=== PATIENT | male | born 1935 | race Caucasian/White ===

== ENCOUNTER 2017-01-06 17:24 | Emergency (ER) | payer OTHER, BC ==
[2017-01-06 17:38] VITALS: BP 113/60; PULSE 99; TEMP 98.3; BMI 29.6
[2017-01-06 21:20] LABS: EOSINOPHIL 3.2 % (0-4.5); MCH 31.2 pg (25.7-33.7); MCHC 33.8 g/dl (32.0-35.9); MEAN CELL VOLUME 92.4 fl (80-96); MEAN PLT VOLUME 7.5 fl (7.5-11.1); PLATELET COUNT 286 K/MM3 (134-434); RDW 14.3 % (11.9-15.9); WHITE BLOOD COUNT 13.9 K/mm3 (4.0-10.0)
[2017-01-06 21:47] LABS: ALBUMIN 3.6 g/dl (3.4-5.0); ANION GAP 8 (8-16); CALCIUM 8.8 mg/dL (8.5-10.1); CO2 27 mmol/L (21-32); CREATININE 1.2 mg/dL (0.7-1.3); GLUCOSE,RANDOM 100 mg/dL (74-106); SGOT/AST 11 U/L (15-37); SGPT/ALT 19 U/L (12-78); TOT PROT 7.3 g/dl (6.4-8.2)
[2017-01-06 21:56] LABS: ALK PHOS 99 U/L (45-117); THYROID STIMULATING HORMONE 1.48 uIU/ml (0.358-3.74); TROPONIN I < 0.02 ng/ml (0.00-0.05)
--- NOTE | 2017-01-06 22:36 | PDOC ---
History of Present Illness - General Chief Complaint: Respiratory Stated Complaint: COUGH Time Seen by Provider: 01/06/17 20:28 History Source: Patient, Family Exam Limitations: No Limitations - History of Present Illness Initial Comments: 01/06/17 22:36 81yo Male patient w/ PmHx: HTN, DVT, HLD, CHF, presents to ED c/o cough x 4 weeks. Patient states he has been given Levaquin and prednisone 3 weeks ago from his PCP, Dr. Marx, upon completion patient states symptoms did not resolve. He was then prescribed Zithromax without relief. Patient c/o dyspnea, and persist cough. He denies n/v/d, CP, Abd pain, Back pain, diff breathing, dizziness, weakness, or any other complaints at this time. PCP Dr. Marx Timing/Duration: reports: constant Severity: reports: moderate Episode Description: See HPI Possible Cause: Yes: no prior episodes Modifying Factors: improves with: antibiotics. worse with: activity, albuterol inhaler, albuterol nebulizer, coughing, lying down, oxygen, rest, other Associated Symptoms: reports: cough. denies: denies symptoms, chest pain/ soreness, dizziness, earache, facial pain, fever/chills, headache, lightheadedness, muscle aches, nasal congestion, nasal drainage, shortness of breath, sinus infection, sore throat, wheezing, other Aspirin Received prior to arrival: No: no aspirin today, unknown, 81 mg x 1, 81 mg x 2, 81 mg x 3, 81 mg x 4, 325 mg x 1, provided at home, provided by EMS, provided by ED ASA Contraindications(Core Measure): No: Allergy, Other, Active Blding w/i 24 hrs., Plavix, Receiving Warfarin Past History - Travel Traveled outside of the country in the last 30 days: No Close contact w/someone who was outside of country & ill: No - Past Medical History Allergies/Adverse Reactions: Allergies Allergy/AdvReac Type Severity Reaction Status Date / Time No Known Drug Allergies Allergy Verified 01/06/17 17:30 Home Medications: Ambulatory Orders Aspirin Coated [Ecotrin -] 81 mg PO DAILY 11/21/13 Cholecalciferol (Vitamin D3) [Vitamin D] 2,000 unit PO DAILY 11/21/13 Losartan Potassium 100 mg PO DAILY 11/21/13 Anemia: No Asthma: No Cancer: No Cardiac Disorders: No CVA: No COPD: No CHF: No Dementia: No Diabetes: No GI Disorders: No Disorders: No HTN: Yes Hypercholesterolemia: No Liver Disease: No Seizures: No Thyroid Disease: No - Surgical History Neurologic Surgery: Yes (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) - Psycho/Social/Smoking Cessation Hx Anxiety: No Suicidal Ideation: No Smoking History: Never smoked Have you smoked in the past 12 months: No Hx Alcohol Use: No Drug/Substance Use Hx: No Substance Use Type: None Hx Substance Use Treatment: No Respiratory Specific PMHX - Complaint Specific PMHX Angina: No Bronchitis: No Pneumonia: No Pulmonary Embolus: No TB (Tuberculosis): No Review of Systems - Review of Systems Able to Perform ROS?: Yes Is the patient limited Japanese proficient: No Constitutional: No: Chills, Fever, Night Sweats Respiratory: Yes: Cough, Shortness of Breath, SOB with Exertion. No: SOB at Rest, Stridor, Wheezing, Productive cough Cardiac (ROS): No: Chest Pain, Lightheadedness, Palpitations, Syncope, Chest Tightness ABD/GI: No: Constipated, Diarrhea, Nausea, Poor Appetite, Poor Fluid Intake, Vomiting, Abdominal cramping : No: Burning, Dysuria, Hematuria Musculoskeletal: No: Back Pain Integumentary: No: Bruising, Dryness, Erythema, Sweating Neurological: No: Headache All Other Systems: Reviewed and Negative *Physical Exam - Vital Signs Last Vital Signs Temp Pulse Resp BP Pulse Ox 98.3 F 99 H 20 113/60 96 01/06/17 17:26 01/06/17 17:26 01/06/17 17:26 01/06/17 17:26 01/06/17 17:26 - Physical Exam General Appearance: Yes: Nourished, Appropriately Dressed. No: Apparent Distress, Mild Distress, Moderate Distress, Severe Distress Neck: positive: Trachea midline, Supple. negative: Rigid, Decreased range of motion, Stridor, Lymphadenopathy (R), Lymphadenopathy (L), Tender lateral, Tender midline Respiratory/Chest: positive: Lungs Clear, Normal Breath Sounds. negative: Chest Tender, Respiratory Distress, Accessory Muscle Use, Labored Respiration, Rapid RR, Decreased Breath Sounds, Crackles, Rales, Rhonchi, Stridor, Wheezing Cardiovascular: positive: Regular Rhythm, Regular Rate Gastrointestinal/Abdominal: positive: Normal Bowel Sounds, Soft. negative: Distended, Guarding, Rebound, Tenderness Musculoskeletal: positive: Normal Inspection. negative: CVA Tenderness Extremity: positive: Normal Capillary Refill, Normal Inspection, Normal Range of Motion, Pelvis Stable, Pedal Edema, Swelling. negative: Tender, Calf Tenderness, Erythema, Inflammation Integumentary: positive: Normal Color, Dry, Warm, Bruising Neurologic: positive: marketing team lead II-XII NML intact, Fully Oriented, Normal Mood/Affect , Normal Response, Motor Strength 09/11 ED Treatment Course - LABORATORY CBC & Chemistry Diagram: 01/06/17 21:00 01/06/17 21:00 - ADDITIONAL ORDERS Additional order review: Laboratory Results 01/06/17 21:00 Sodium 139 Potassium 4.7 Chloride 104 Carbon Dioxide 27 Anion Gap 8 BUN 18 Creatinine 1.2 Creat Clearance w eGFR 57.96 Random Glucose 100 Calcium 8.8 Total Bilirubin 1.0 AST 11 L ALT 19 Alkaline Phosphatase 99 Troponin I < 0.02 B-Natriuretic Peptide 338.39 Total Protein 7.3 Albumin 3.6 TSH 1.48 01/06/17 21:00 RBC 4.62 MCV 92.4 MCHC 33.8 RDW 14.3 MPV 7.5 Neutrophils % 71.0 Lymphocytes % 13.9 Monocytes % 10.9 H Eosinophils % 3.2 Basophils % 1.0 - RADIOLOGY Radiology Studies Ordered: Category Date Time Status CHEST PA & LAT [RAD] Stat Radiology 01/06/17 20:41 Taken Medical Decision Making - Medical Decision Making 01/07/17 01:54 Patient requesting to leave. Patient informed CT transmission to radiology compromised at this time and unable to get readings for studies. Patient will go home and is requesting that I call him at [phone]. Patient is no acute distress at this time. *DC/Admit/Observation/Transfer Diagnosis at time of Disposition: Cough - Discharge Dispostion Disposition: HOME Condition at time of disposition: Stable Admit: No - Patient Instructions Additional Instructions: Follow up with Dr. Marx this week for further evaluation. I will call you with your CT-Results as soon as I receive them. Return if any concerns for further evaluation. Print Language: SWAZI
--- NOTE | 2017-01-06 22:40 | PDOC ---
*Physical Exam - Vital Signs Last Vital Signs Temp Pulse Resp BP Pulse Ox 98.3 F 99 H 20 113/60 96 01/06/17 17:26 01/06/17 17:26 01/06/17 17:26 01/06/17 17:26 01/06/17 17:26 ED Treatment Course - LABORATORY CBC & Chemistry Diagram: 01/06/17 21:00 01/06/17 21:00 - ADDITIONAL ORDERS Additional order review: Laboratory Results 01/06/17 21:00 Sodium 139 Potassium 4.7 Chloride 104 Carbon Dioxide 27 Anion Gap 8 BUN 18 Creatinine 1.2 Creat Clearance w eGFR 57.96 Random Glucose 100 Calcium 8.8 Total Bilirubin 1.0 AST 11 L ALT 19 Alkaline Phosphatase 99 Troponin I < 0.02 B-Natriuretic Peptide 338.39 Total Protein 7.3 Albumin 3.6 TSH 1.48 01/06/17 21:00 RBC 4.62 MCV 92.4 MCHC 33.8 RDW 14.3 MPV 7.5 Neutrophils % 71.0 Lymphocytes % 13.9 Monocytes % 10.9 H Eosinophils % 3.2 Basophils % 1.0 Medical Decision Making - Medical Decision Making 01/06/17 22:39 agree with care from LACE MACHINE OPERATOR Stefano *DC/Admit/Observation/Transfer Diagnosis at time of Disposition: Cough - Discharge Dispostion Disposition: HOME Condition at time of disposition: Stable - Referrals Referrals: Wilner Marx MD [Primary Care Provider] - - Patient Instructions Additional Instructions: Follow up with Dr. Marx this week for further evaluation. I will call you with your CT-Results as soon as I receive them. Return if any concerns for further evaluation. Print Language: SLOVAK
--- NOTE | 2017-01-07 11:10 | EKG ---
Test Reason : Blood Pressure : / mmHG Vent. Rate : 077 BPM Atrial Rate : 077 BPM P-R Int : 152 ms QRS Dur : 084 ms QT Int : 380 ms P-R-T Axes : 064 058 047 degrees QTc Int : 430 ms NORMAL SINUS RHYTHM NORMAL ECG NO PREVIOUS ECGS AVAILABLE Confirmed by DOUG WILKNIS MD ([id number]) on 01/07/2017 11:10:15 AM Referred By: Confirmed By:DOUG WILKINS MD
== END 2017-01-07 02:08 | disposition home or self-care (01) ==
LOC: JER 17:24
DX: R05 Cough (principal); I25.10 Atherosclerotic heart disease of native coronary artery without angina pectoris; I11.0 Hypertensive heart disease with heart failure; E78.00 Pure hypercholesterolemia, unspecified; Z86.718 Personal history of other venous thrombosis and embolism
CPT/HCPCS: 36415; 71020-TC; 71250-TC; 80053; 83880; 84443; 84484; 85025; 93005; 93010; 99282-25

== ENCOUNTER 2017-01-07 16:00 | Emergency (ER) | payer OTHER, BC ==
[2017-01-07 16:08] VITALS: TEMP 97.7; BMI 29.6
--- NOTE | 2017-01-07 18:33 | PDOC ---
History of Present Illness - General History Source: Patient, Family (Daughter), Old Records Exam Limitations: No Limitations - History of Present Illness Initial Comments: 01/07/17 20:18 The patient is an 81 year old male, with a significant past medical history of hypertension, who presents to the emergency department with a nonproductive cough for the past month. The patient reports that he has seen his PCP (Dr. Marx ) for the cough and has taken two different antibiotics in the past month without relief of symptoms. The patient was seen in this ED yesterday (01/06/17) with similar symptoms. The patient was ultimately discharged but was called back today to return to the ED regarding a chest CT finding. The patient denies fever or chills. The patient denies chest pain or shortness of breath. The patients daughter is at the bedside. Allergies: None reported. Past Surgical History: Pituitary Tumor Removed (2007). Social History: Former social smoker (quit ~over 35 years ago). Denies alcohol or drug use. PCP: Dr. 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) - Psycho/Social/Smoking Cessation Hx Anxiety: No Suicidal Ideation: No Smoking History: Never smoked Have you smoked in the past 12 months: No Information on smoking cessation initiated: No Hx Alcohol Use: No Drug/Substance Use Hx: No Substance Use Type: None Hx Substance Use Treatment: No <Alisa Sherman - Last Filed: 01/07/17 21:25> - Past Medical History Allergies/Adverse Reactions: Allergies Allergy/AdvReac Type Severity Reaction Status Date / Time No Known Drug Allergies Allergy Verified 01/07/17 16:08 Home Medications: Ambulatory Orders Aspirin Coated [Ecotrin -] 81 mg PO DAILY 11/21/13 Cholecalciferol (Vitamin D3) [Vitamin D] 2,000 unit PO DAILY 11/21/13 Losartan Potassium 100 mg PO DAILY 11/21/13 Amoxicillin/Potassium Clav [Amox-Clav 500-125 mg Tablet] 2 each PO TID #14 tablet 01/07/17 Review of Systems - Review of Systems Able to Perform ROS?: Yes Comments:: 01/07/17 19:08 GENERAL/CONSTITUTIONAL: No fever or chills. No weakness. HEAD, EYES, EARS, NOSE AND THROAT: No change in vision. No ear pain or discharge. No sore throat. CARDIOVASCULAR: No chest pain or shortness of breath. RESPIRATORY: +Cough. No wheezing or hemoptysis. GASTROINTESTINAL: No nausea, vomiting, diarrhea or constipation. GENITOURINARY: No dysuria, frequency, or change in urination. MUSCULOSKELETAL: No joint or muscle swelling or pain. No neck or back pain. SKIN: No rash. NEUROLOGIC: No headache, vertigo, loss of consciousness, or change in strength/ sensation. ENDOCRINE: No increased thirst. No abnormal weight change. HEMATOLOGIC/LYMPHATIC: No anemia, easy bleeding, or history of blood clots. ALLERGIC/IMMUNOLOGIC: No hives or skin allergy. <Samantha Britton - Last Filed: 01/07/17 20:35> *Physical Exam - Vital Signs Last Vital Signs Temp Pulse Resp BP Pulse Ox 97.7 F 97 H 19 143/73 97 01/07/17 16:05 01/07/17 16:05 01/07/17 16:05 01/07/17 16:05 01/07/17 16:05 - Physical Exam Comments: 01/07/17 20:32 GENERAL: Awake, alert, and fully oriented, in no acute distress. HEAD: No signs of trauma. EYES: PERRLA, EOMI, sclera anicteric, conjunctiva clear. ENT: Auricles normal inspection, hearing grossly normal, nares patent, oropharynx clear without exudates. Moist mucosa. NECK: Normal ROM, supple, no lymphadenopathy, JVD, or masses. LUNGS: Breath sounds equal, clear to auscultation bilaterally. No wheezes, and no crackles. HEART: Regular rate and rhythm, normal S1 and S2, no murmurs, rubs or gallops. ABDOMEN: Soft, nontender, normoactive bowel sounds. No guarding, no rebound. No masses. EXTREMITIES: Normal range of motion, no edema. No clubbing or cyanosis. No cords , erythema or tenderness. NEUROLOGICAL: Cranial nerves II through XII intact. Normal speech, normal gait. SKIN: Warm, dry, normal turgor, no rashes or lesions noted. <Samantha Britton - Last Filed: 01/07/17 20:35> - Vital Signs Last Vital Signs Temp Pulse Resp BP Pulse Ox 97.7 F 97 H 19 143/73 97 01/07/17 16:05 01/07/17 16:05 01/07/17 16:05 01/07/17 16:05 01/07/17 16:05 <Alisa Sherman - Last Filed: 01/07/17 21:25> Medical Decision Making - Medical Decision Making 01/07/17 21:23 Pt presents to the ED complaining of chronic cough. Had CT scan performed yesterday that shows questionable PNA vs mass. Patient has no complaints except for chronic cough. Specifically denies chest pain, shortness of breath or fever. Case discussed with Physician who is covering PMD's office, who agrees with discharge home and outpatient PET scan, but requests that patient be started on a different antibiotic. Will send home with rx for Augmentin. <Alisa Sherman - Last Filed: 01/07/17 21:25> *DC/Admit/Observation/Transfer - Attestations Scribe Attestion: 01/07/17 19:09 Documentation prepared by Samantha Britton, acting as medical record transcriber for Alisa Sherman MD. <Samantha Britton - Last Filed: 01/07/17 20:35> - Discharge Dispostion Admit: No <Alisa Sherman - Last Filed: 01/07/17 21:25> Diagnosis at time of Disposition: Cough - Discharge Dispostion Disposition: HOME - Prescriptions Prescriptions: Amoxicillin/Potassium Clav [Amox-Clav 500-125 mg Tablet] 2 each PO TID #14 tablet - Referrals Referrals: Wilner Marx MD [Primary Care Provider] - - Patient Instructions Printed Discharge Instructions: Cough Additional Instructions: Return to the ED for severe cough, cough with fever, severe shortness of breath , nausea and vomiting. You may have a mass in your chest that requires evaluation with a PET scan. Make sure that you follow up with Dr. Marx on Wednesday.
[2017-01-07 20:44] VITALS: BP 137/79; PULSE 72
== END 2017-01-07 20:35 | disposition home or self-care (01) ==
LOC: JER 16:00
DX: R05 Cough (principal); I10 Essential (primary) hypertension
CPT/HCPCS: 99282-25